=== PATIENT | male | born 1980 | race Caucasian/White ===

== ENCOUNTER 2016-06-15 10:42 | Inpatient (IN) | payer OTHER, MEDICAID ==
--- NOTE | 2016-06-15 10:59 | ED Physician Chart ---
Chief Complaint/HPI - Patient Information Date Seen:: 06/15/16 Time Seen:: 10:59 Chief Complaint:: FEVER and CHILLS THIS AM History of Present Illness:: The patient awoke at 5:30 this morning with chills. 8:30 he was running a fever and subsequent to that he developed pain in his left leg. 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 Patient rates his leg pain is a 5-6/10. It is more painful when he bears weight and less painful with elevation. Patient has been a diabetic for 18 years. He has had slight increase in urine volume over the past 2 days. Allergies:: Allergies Allergy/AdvReac Type Severity Reaction Status Date / Time codeine Allergy Verified 06/15/16 10:55 Historian:: Patient Review:: Nurse's Note Reviewed (nursing notes show fever and chills and body aches as the chief complaint vital signs show temperature of 99.3, pulse of 129 respirations of 16 and blood pressure of 104/70. The O2 sat is 95%.) Review of Systems - Review of Systems General/Constitutional: Fever, Chills, No weight loss, No weakness, No loss of appetite Skin: Skin lesions, No bruising, Other (the patient has a dime-sized ulceration on his left heel. There is increased pigmentation over the left pretibial region.) Head: No headache, No light-headedness Eyes: No loss of vision, No pain, No diplopia ENT: No earache, No sore throat, No tinnitus Neck: No neck pain, No swelling, No stiffness, No mass noted Cardio Vascular: No chest pain, No palpitations, No orthopnea, edema Pulmonary: SOB (shortness of breath is mild.), No cough, No sputum, No wheezing GI: No nausea, No vomiting, No diarrhea, No pain, Constipation G/U: No dysuria, Frequency, No hematuria, No nacturia Syrup Blender: Other (normal external genitalia.) Musculoskeletal: Bone or joint pain, No muscle pain, Other (the pain is localized to the left anterior pretibial region.) Endocrine: No polydipsia Psychiatric: No prior psych history Hematopoietic: No bruising, No lymphadenopathy Allergic/Immuno: No urticaria, No angioedema Neurological: No syncope, No focal symptoms, No weakness, No paresthesia, No headache, No seizure, No dizziness, No confusion, No vertigo Past Medical History - Past Medical History Past Medical History: HTN (the patient has chronic renal disease with approximately 30% of renal function.), DM (diabetes 18 years.) Social History: Non Smoker, No Alcohol, No Drug Use, 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 Family Medical History - Family Member Father History Unknown: Yes Living Status: Still Living Hx Family Diabetes: Yes Physical Exam - Physical Examination General/Constitutional: Well-developed, well-nourished, Alert Other Gen/Cons comments:: Patient is in mild distress from his fever, chills and left leg pain. Head: Atraumatic Eyes: Lids, conjuctiva normal, PERRL, EOMI Other Eyes comments:: Mild horizontal nystagmus with gaze to the left. Other Skin comments:: There is increased pigmentation in the left pretibial region compared to the right side. Furthermore that region is much warmer and tender to palpation than the right side. There is an erythemic component to the increased pigmentation. There is a dime-sized full-thickness ulceration over the left heel which is full-thickness and without any extrusion of purulent material. ENMT: External ears, nose nl, TM canals nl, Nasal exam nl, Lips, teeth, gums nl , Oropharynx nl, Tonsils nl Neck: Nontender, Full ROM w/o pain, No JVD, No nuchal rigidity, No mass, No stridor Respiratory: Nl effort/Exclusion, No Wheeze/Rhonchi/Rales Other Cardio Vascular comments:: The patient has a regular tachycardia in the 1:30 range. GI: No tenderness/rebounding/guarding, No organomegaly, No hernia, Normal BS's, Nondistended, No mass/bruits, No McBurney tenderness Other GI comments:: Rectal exam deferred at my discretion. : No CVA tenderness, NL external genitalia Extremities: Full ROM, normal strength in all extremities Other Extremities comments:: The left anterior tibial region is hot to the touch, with increased pigmentation and mild erythema. No lymphangitis. The other extremities are all normal. There is a dime-sized full-thickness ulceration in the region of the left heel. Neuro/Psych: Alert/oriented, Normal sensory exam, Normal motor strength, Judgement/insight normal, Mood normal, No focal deficits Other Neuro/Psych comments:: She was not ambulated due to increased pain when he weight bears with the left lower extremity. Misc: Normal back, No paraspinal tenderness Labs/Radiology/EKG Results - Radiology Results Results: Single view portable chest x-ray: Patient has borderline cardiomegaly. No CHF. No areas of pulmonary infiltrate or consolidation. No pneumothorax. No mediastinal widening. Impression: Borderline chest x-ray due to borderline cardiomegaly. - EKG Interpretations EKG Time:: 11:59 Rhythm: sinus tachycardia Bradford: normal axis Rate: 1:15 Comments:: Normal [place] interval. QRS duration of 103 is borderline prolonged. normal was normal. No ST segment elevation or depression. Normal T waves. Impression : No acute ischemic findings. Assessment - Assessment General Assessment: CASE SUMMARY: This 36-year-old diabetic male presents with onset of chills and fever earlier this a.m. He also has pain in the left lower extremity below the knee and an ulceration on the left heel. On examination of the leg it is hot to the touch and tender and mildly erythemic. Patient has a past medical history of diabetes, hypertension, and chronic renal impairment. At the present time he is not dialysis dependent. The white count returned in the 17, 000 range, the creatinine was 3.9, BUN was 58. Patient's electrolytes showed mild hyponatremia and hypokalemia. The lactic acid was 1.96. The patient received 2 L of normal saline with an additional 1.6 L ordered. He received Ancef 2 g intravenously. His primary care physician is Dr. Traylor and he has [facility] insurance which he admits to Dr. Whitlock. The patient will be admitted to a med/surgical bed for further diagnostic evaluation and treatment of sepsis. MDM DDX for FEVER AND CHILLS: NOT Pneumonia based on patient's history and exam and negative chest x-ray. NOT urinary tract infection based on the results of the UA. NOT meningitis based on the patient's history and physical examination. ED Septic Shock - . Is Septic Shock (SBP<90, OR Lactate>4 mmol\L) present?: No Reassessment (Disposition) - Reassessment Reassessment Condition:: Improved - Diagnosis Diagnosis:: CELLULITIS OF THE Distal LEFT LOWER EXTREMITY, SEPSIS, Diabetes, Hypertension, Chronic Renal Disease. - Aftercare/Follow up Instructions Aftercare/Follow-Up Instructions:: Counseled pt & family regarding lab results/ diagnosis & need follow up - Patient Disposition Discharge/Transfer:: Acute Care w/in this hosp Accepting Physician:: I spoke with Dr.Herin Traylor his primary care physician who was a nephrologis
[2016-06-15] MEDS ORDERED: Sodium Chloride 0.9% 2,000 ML IV ONE (11:20)
[2016-06-15 11:30] LABS: HEMATOCRIT 34.6 % (39.0-49.0); HEMOGLOBIN 11.8 gm/dL (13.2-17.3); MEAN CELL VOLUME 79.8 fl (80-99); MEAN CORPUSCULAR HEMOGLOBIN 27.3 pg (26.0-30.0); MEAN CORPUSCULAR HGB CONC 34.2 pg (28.0-36.0); MEAN PLATELET VOLUME 7.1 fl; RED BLOOD COUNT 4.33 Mil/cmm (4.30-5.70); RED CELL DISTRIBUTION WIDTH 14.3 % (11.5-20.0)
[2016-06-15] MEDS ORDERED: ceFAZolin 2 GM in Sodium Chloride 0.9% 100 ML IV SCH (11:30)
[2016-06-15 11:32] LABS: PLATELET COUNT 340 Th/cmm (150-400); WHITE BLOOD COUNT 17.5 Th/cmm (4.8-10.8)
[2016-06-15 11:36] LABS: URINE BILIRUBIN NEGATIVE (NEGATIVE); URINE BLOOD MODERATE (NEGATIVE); URINE COLOR YELLOW; URINE GLUCOSE (UA) 100 mg/dL (NEGATIVE); URINE KETONE NEGATIVE (NEGATIVE)
[2016-06-15 11:37] LABS: URINE PROTEIN >300 mg/dL (NEGATIVE); URINE UROBILINOGEN 0.2 E.U./dL (0.2 - 1.0)
[2016-06-15 11:43] LABS: URINE BACTERIA NONE SEEN /hpf (NONE SEEN); URINE EPITHELIAL CELLS FEW /lpf (FEW); URINE WBC 0-2 /hpf (0-5)
[2016-06-15 11:44] LABS: URINE COARSE GRANULAR CAST 0-2 /lpf (NONE SEEN); URINE FINE GRANULAR CAST 0-2 /lpf (NONE SEEN)
[2016-06-15 11:53] LABS: ANION GAP 10.1 (7.0-16.0); BILIRUBIN,TOTAL 0.5 mg/dL (0.3-1.0); BUN/CREATININE RATIO 14.9; CALCIUM SERUM 9.5 mg/dL (8.6-10.3); CREATININE - SERUM 3.9 mg/dL (0.7-1.3); POTASSIUM SERUM 3.1 mEq/L (3.5-5.1)
[2016-06-15 12:33] LABS: BAND NEUTROPHILE 10 % (0-10); NEUTROPHILS 82 % (40-80); TOTAL CELLS COUNTED 100
[2016-06-15 12:34] LABS: MICROCYTOSIS 1+; PLATELET ESTIMATE ADEQUATE (NORMAL); PLATELET MORPHOLOGY NORMAL (NORMAL)
--- NOTE | 2016-06-15 13:33 | Admit Criteria Form ---
Admit Criteria Forms - Admit Criteria Diagnosis: CELLULITIS Clinical Indications for Admission to Inpatient Care (Place 'X' for any and all applicable criteria): Admission is indicated for ANY ONE of the following(1)(2)(3)(4)(5): [ ]I. Limb-threatening infection [ ]II. High-risk comorbid condition as indicated by ANY ONE of the following: [ ]a) Uncontrolled diabetes (eg, HbA1c greater than 10% (0.1)) [ ]b) Cirrhosis [ ]c) Neutropenia [ ]d) Asplenia [ ]e) Immunosuppression [ ]f) Symptomatic heart failure [ ]III. Failure of outpatient therapy as indicated by ALL of the following: [ ]a) Progression or no improvement after adequate trial (minimum of 48 hours, with longer period for stable lower extremity infection) [ ]b) Adequate antibiotic regimen as indicated by use of ANY ONE of the following: [ ]i) First-generation cephalosporin (e.g., cephalexin) [ ]ii) Antistaphylococcal penicillin (e.g., dicloxacillin) [ ]iii) Penicillin-allergic patient regimen (clindamycin, extended-spectrum fluoroquinolone, or doxycycline) [ ]iv) Resistant organism (eg, methicillin-resistant Staphylococcus aureus) regimen (6) [ ]c) Outpatient intravenous therapy regimen is not appropriate due to ANY ONE of the following. (7)(8)(9)(10): [ ]i) It was tried and was not successful (eg, progression of infection). [ ]ii) It is not available or cannot be arranged in a clinically appropriate time frame (e.g., the next day). [ ]iii) Clinical presentation (eg, acuity of infection, rapidity of progression, confirmed or suspected bacteremia) is judged to require ALL of the following: [ ]1) Immediate initiation of intravenous therapy ( eg, cannot wait for next day) [ ]2) Intensity of patient monitoring and observation (eg, vital sign measurement, checks for infection progression) that cannot be provided at other than inpatient level of care [ ]IV. Mental status changes [ ]V. Bacteremia [ ]. Hemodynamic instability [ ]VII. Suspected necrotizing soft tissue infection (e.g., gas in tissue)(11)( 12) [ ]VIII. Orbital infection (13)(14) [ ]IX. Associated surgical procedure (e.g., abscess drainage, debridement) not amenable to outpatient, emergency department, or observation care [ ]X. Cutaneous gangrene [ ]XI. High fever (temperature greater than 39.5 degrees C (103.1 degrees F) (oral)) not responsive to outpatient, emergency department, or observation care therapy [X]XIII. Inpatient admission required rather than observation care (Also use Cellulitis: Observation Care as appropriate) because of ANY ONE of the following : [ ]a) Periorbital or perineal infection that is severe or worsening [ ]b) Severe pain requiring acute inpatient management [ ]c) IV fluid to replace significant ongoing (e.g., for over 24 hours) losses (greater than 3L/m2 per day) [ ]d) Compartment syndrome monitoring (17) [ ]e) Strict or protective (eg, laminar flow) isolation [ ]f) Urgent debridement or skin grafting [ ]g) Bone or joint debridement [ ]h) Immediate inpatient surgery [X]i) Other condition, treatment or monitoring requiring inpatient admission Extended stay beyond goal length of stay may be needed for (1)(18): [ ]a) Necrotizing soft tissue infection or fasciitis [ ]b) Gram-negative infection [ ]c) Methicillin-resistant Staphylococcal aureus (MRSA) infection [ ]d) Peripheral venous insufficiency with cellulitis [ ]e) Extensive edema [ ]f) Sepsis or continued Hemodynamic instability [ ]g) Continued high fever or mental status change [ ]h) Bacteremia [ ]i) Active serious comorbid conditions ( eg, heart failure, renal insufficiency) The original [facility] [employer] content created by [facility] [employer] has been revised. The portions of the content which have been revised are identified through the use of italic text or in bold, and [facility] has neither reviewed nor approved the modified material. All other unmodified content is copyright [facility] Please see references footnoted in the original [facility] edition 2016 Admit Criteria Met?: Yes
[2016-06-15] MEDS ORDERED: Potassium Chloride 20 mEq ER Tab PO ONE ×2 (13:46→14:06)
[2016-06-15] MEDS ORDERED: Piperacillin Sodium/Tazobact 3.375 gm Vial IV ONE (14:06)
--- NOTE | 2016-06-15 15:09 | Diagnostic Imaging Report ---
Portable chest x-ray History: Pain Allowing for portable technique the heart size is normal. No focal pulmonary parenchymal processes. No hilar or mediastinal abnormalities. Impression: No acute abnormalities.
[2016-06-15] MEDS: INSULIN ASPART SLIDING SCALE 100 UNITS/ML UNIT SUBQ SCH ×2 (18:45→22:08)
--- NOTE | 2016-06-15 19:23 | History & Physical ---
CHIEF COMPLAINT: "I started to have fever and chills this morning. I have foot ulcers for the last 2 years and my left leg is swollen. HISTORY OF PRESENT ILLNESS: This is a 36-year-old [place] male with history of type 2 diabetes, hypertension and history of chronic kidney disease, has been followed by the color paste mixing supervisor, presented himself to the Emergency Room for evaluation of acute onset of fever and chills associated with left leg swelling and pain. The patient was worked up in the Emergency Room and subsequently admitted to the hospital for further treatment. The patient is a good historian. PAST MEDICAL HISTORY: Remarkable for: 1. Diabetes. 2. Hypertension. 3. DJD. 4. Chronic kidney disease, stage 3-4. 5. Nephrotic syndrome. MEDICATIONS AT HOME: The patient is taking Levemir insulin along with bolus insulin, lispro, Lasix, clonidine, aspirin and Norvasc. ALLERGIES: The patient is allergic to codeine. 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 The patient has no smoking cigarette, drinking alcohol or using street drug use. FAMILY MEDICAL HISTORY: Remarkable for diabetes. REVIEW OF SYSTEMS: The patient currently denies any headache, blurred vision, double vision, dysphagia, odynophagia, runny nose, stuffy nose. No chest pain, shortness of breath, no history of any fever or chills. No history of any diarrhea, no history of any dysuria, hematuria, hematochezia, melena. No history of any hematochezia. PHYSICAL EXAMINATION: GENERAL: The patient is alert, awake and oriented lying in the bed without any acute distress. VITAL SIGNS: T-max is 99.3, pulse is 129, blood pressure is 104/70 and respiratory rate is 16. HEENT: Head: Normocephalic and atraumatic. Eyes: Extraocular muscles are intact. Mouth: Tongue was pink and coated. NECK: Supple. No JVD and no hepatojugular reflex. No lymphadenopathy, thyromegaly or carotid bruit. HEART: Both heart sounds are regular. No S3 and no S4. CHEST: Lung equal in expansion. No wheezing and no crackles. ABDOMEN: Protuberant and soft. No guarding and no rigidity. Liver and spleen palpable. No palpable mass. EXTREMITIES: Remarkable for chronic venostasis changes on both legs noted more on the left than right with significant amount of erythema involving starting from the ankle going all the way up to the knee area noted. There is no calf tenderness. There is a base on the left heel. There are ulcers approximately 3 x 2 cm oval shaped noted with edges of the ulcers has macerated skin. The base of the ulcer is white with pink in color noted. Both peripheral pulses were +2, palpable. No calf tenderness noted. NEUROLOGIC: Alert, awake and oriented to time, place and person. A 2-12 cranial nerves are intact. Power in upper and lower extremities, 5+. Sensation to touch are intact. Babinskis in both toes are going down. No cerebral sign. AVAILABLE DIAGNOSTIC DATA: Performed in the Emergency Room, white count of 17.5, hemoglobin 11.8, hematocrit of 34.6 and platelet count of 340. BUN and creatinine is ____ and 3.9, sodium 133, potassium of 3.1, glucose of 179 and calcium of 9.5. Lactic acid is normal. I do not have lactic acid is normal. The chest x-ray, no infiltrate and no congestion. Blood cultures have been done, which is not available. MRSA screening has been done as well. CLINICAL IMPRESSIONS: 1. Rapidly progressive cellulitis, most likely from group A. 2. Left heel nonhealing ulcers. 3. Sepsis. 4. Diabetes mellitus, insulin requiring. 5. Chronic kidney disease. 6. Hypertension. 7. Diabetic neuropathy. PLAN: 1. Admit this patient to medical floor. 2. IV fluid. 3. IV antibiotic. 4. Wait for the blood cultures. 5. Infectious Disease consultations. 6. Appropriate home medicine reconciliation. 7. Nephrology consultation. 8. Monitor the blood pressure. 9. Follow labs. 10. Follow customer service and sales consultant recommendations. 11. On the view of ulcers on the left heel, an MRI of the ankle will be done in order to assess osteomyelitis. Further recommendations will be given once other lab datas are available. Care plan has been reviewed and discussed with the patient. JOB# [id number]
[2016-06-15] MEDS ORDERED: Non-Formulary Item 1 EA (Insulin Lispro [Humalog] 2 UNIT) SUBQ SCH (21:00)
[2016-06-15] MEDS: Acetaminophen 500 MG TAB PO PRN (21:15)
[2016-06-15] MEDS: Insulin Detemir 100 units/mL 10mL Vial SUBQ SCH (22:07)
--- NOTE | 2016-06-16 05:59 | Consultation ---
REFERRING PHYSICIAN: Dr. Dallin Jernigan. REASON FOR CONSULTATION: Fever and sepsis. HISTORY OF PRESENT ILLNESS: The patient is a 36-year-old male with a past medical history of CKD, stage V, for last 1 year and not on any hemodialysis, had chronic venous insufficiency of both legs with discoloration of both legs, may have diabetic dermatopathy, followed by outbound sales executive for his left heel ulcer. He developed fever and chills this morning, so he came to the ER for further evaluation and management. On initial evaluation, the patient's temperature was 99.3 degrees Fahrenheit and WBC count was 17,500. The patient also complained of some redness of his left leg extending to the knee from below. The patient was started on Zosyn and ID consultation was called in for the antibiotic management. PAST MEDICAL HISTORY: Includes diabetes mellitus type 2 for more than 18 years, hypertension, CKD, stage V for almost 1 year, venous insufficiency of both legs and discoloration of both legs for almost more than 1 year, left heel ulcer, followed by podiatry healthcare network pricing consultant using diabetic shoes and obstructive sleep apnea on CPAP at night. SOCIAL HISTORY: The patient is . Denies any smoking, alcohol or drug use. 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 FAMILY HISTORY: Father has diabetes mellitus. ALLERGIES: NKDA. MEDICATIONS: As per medication reconciliation sheet. Antibiotic velasquez, the patient is on Zosyn. REVIEW OF SYSTEMS: GENERAL: The patient complains of fever. There are associated chills. Denies any generalized weakness. HEENT: The patient denies diplopia, photophobia or sore throat. RESPIRATORY: The patient denies any cough or shortness of breath or wheezing. CVS: The patient denies any chest pain, no palpitation and no leg swelling. GASTROINTESTINAL: The patient denies any nausea, vomiting, diarrhea, constipation nor abdominal pain. GENITOURINARY: The patient denies any dysuria or hematuria. NEUROLOGIC: The patient denies any headache, dizziness or focal weakness. SKIN: The patient has discoloration of both legs with dry skin and scaly skin. The patient also has redness in the left leg extending from the leg area to the knee. PHYSICAL EXAMINATION: VITAL SIGNS: Current vital signs show temperature is 99.1, pulse 105, respirations 16 and blood pressure 138/71. GENERAL: The patient is comfortable lying in the bed, not in acute distress. HEENT: Head is normocephalic and atraumatic. Oral cavity moist, pink tongue. Eyes: No pallor and no icterus. Pupils PERRLA, EOMI. NECK: Supple. No JVD and no carotid bruit. Trachea in midline. CHEST: Bilateral breath sounds. No crackles or wheezing. CARDIOVASCULAR: S1 and S2 within normal limits. Regular rhythm. No murmur and no gallop. ABDOMEN: Soft, nontender and nondistended. Bowel sounds present. EXTREMITIES: No cyanosis, no clubbing and no edema. The patient has discoloration and darkening of the skin with scaling of both lower extremities in the leg area. There is faint redness in the left leg extending ____ from leg area to the knee and popliteal area posteriorly. There is no swelling or edema. NEUROLOGIC: Alert, awake and oriented x 3. No focal neurologic deficits. LABORATORY DATA: Current lab shows WBC count is 17,500, hemoglobin 11.8, hematocrit 34.6, platelets are 340,000 and neutrophils 82%. Sodium 133, potassium 3.1, chloride 99, bicarb is 27, BUN is 58, creatinine 3.9 and glucose is 179. LFTs reviewed. Urinalysis showed moderate blood, bacteria none and wbc 's 0-2. IMAGING STUDIES: Chest x-ray shows no active disease. IMPRESSION: 1. Sepsis and leukocytosis. 2. Left leg cellulitis, likely Staphylococcus versus Streptococcus. 3. Left heel nonhealing ulcers secondary to callous versus diabetic foot ulcer followed by podiatry healthcare network pricing consultant. 4. Obstructive sleep apnea on CPAP. 5. Diabetes mellitus type 2 for 18 years or so. 6. CKD stage V, may be secondary to diabetic nephropathy. 7. Hypertension. 8. Diabetic neuropathy. 9. Venous insufficiency. 10. May have eczema versus diabetic dermatopathy. RECOMMENDATIONS: We will continue Zosyn, add vancomycin IV, arterial study of both lower extremities. Thank you, Dr. Jernigan for involving me in taking care of this patient. JOB# [id number] MTDD
[2016-06-16] MEDS: Acetaminophen 500 MG TAB PO PRN ×2 (06:05→16:14)
[2016-06-16 07:10] LABS: HEMOGLOBIN 10.8 gm/dL (13.2-17.3); MEAN CELL VOLUME 80.9 fl (80-99); MEAN CORPUSCULAR HEMOGLOBIN 28.4 pg (26.0-30.0); MEAN CORPUSCULAR HGB CONC 35.1 pg (28.0-36.0); MEAN PLATELET VOLUME 7.2 fl; PLATELET COUNT 282 Th/cmm (150-400); RED BLOOD COUNT 3.81 Mil/cmm (4.30-5.70); RED CELL DISTRIBUTION WIDTH 14.6 % (11.5-20.0)
[2016-06-16 07:24] LABS: HEMATOCRIT 30.8 % (39.0-49.0); WHITE BLOOD COUNT 19.9 Th/cmm (4.8-10.8)
[2016-06-16 07:45] LABS: ANION GAP 4.6 (7.0-16.0); BILIRUBIN,TOTAL 0.6 mg/dL (0.3-1.0); CALCIUM SERUM 8.3 mg/dL (8.6-10.3); CARBON DIOXIDE 26.7 mEq/L (21.0-31.0); CREATININE - SERUM 3.5 mg/dL (0.7-1.3); MAGNESIUM 1.9 mg/dL (1.9-2.7); PHOSPHOROUS 2.3 mg/dL (2.5-5.0); POTASSIUM SERUM 3.3 mEq/L (3.5-5.1)
[2016-06-16 07:46] LABS: VANCOMYCIN RANDOM 5.9 ug/mL (5.0-40.0)
[2016-06-16] MEDS: INSULIN ASPART SLIDING SCALE 100 UNITS/ML UNIT SUBQ SCH ×4 (07:51→21:47)
[2016-06-16] MEDS: Aspirin 81mg Chewable Tab PO SCH (08:35)
[2016-06-16] MEDS ORDERED: Potassium Chloride 20 mEq ER Tab PO ONE (08:54)
[2016-06-16 09:36] LABS: BAND NEUTROPHILE 12 % (0-10); NEUTROPHILS 82 % (40-80); TOTAL CELLS COUNTED 100
[2016-06-16 09:37] LABS: PLATELET ESTIMATE ADEQUATE (NORMAL); PLATELET MORPHOLOGY NORMAL (NORMAL)
--- NOTE | 2016-06-16 09:48 | Consultation ---
RENAL CONSULTATION LOCATION: [facility], room #31, bed #2. PRIMARY CARE PHYSICIAN: Dr. Jernigan. I thank you very much Dr. Jernigan for this consult. IDENTIFICATION: This is a 36-year-old male patient, known to me for last many years. The patient is a known case of insulin-dependent diabetes mellitus, hypertension, CKD, IV, anemia, severe nephrotic syndrome, and diabetic retinopathy. The patient is supposed to see Dr. Errol Puentes for AV fistula ____ last about 2-3 months. The patient was doing fairly well, recently seen by Podiatry, who did a debridement on his left heel. Now the patient came to the Emergency Room with complaint of fever, chills, pain, redness on the left lower extremity, was found to have severe cellulitis and open wound on the left heel area. The patient has been admitted. Renal consultation has been requested. The patient denies nausea, vomiting, diarrhea. Denies chest pain, shortness of breath. The patient states that he is taking all his medications regularly. His blood sugar is improving gradually. MEDICATIONS: The patient's medications include amlodipine 10 mg a day, aspirin 81 a day, clonidine 0.3 t.i.d., Lasix 80 once a day, insulin Levemir 65 units at night. The patient has been started on IV Zosyn over here. PAST MEDICAL AND SURGICAL HISTORY: As stated above. Insulin-dependent diabetes mellitus, diabetic retinopathy, hypertension, anemia, CKD IV, severe nephrotic syndrome, hyperlipidemia, obesity. SOCIAL HISTORY: No history of alcoholism or smoking. PHYSICAL EXAMINATION: GENERAL: A 36-year-old male patient, conscious, alert VITAL SIGNS: Heart rate 125, temperature 99.1, blood pressure 138/71, respirations 16. HEENT: Head is normocephalic and atraumatic. Eyes, sclerae is nonicteric. Conjunctivae are pale. Pupils are reactive. NECK: Jugular venous pressure not distended. No carotid bruit. No neck stiffness. LUNGS: Good air entry without rales or rhonchi. CARDIOVASCULAR: Regular, no rub or gallop. ABDOMEN: Soft, bowel sounds present. No organomegaly or bruit. EXTREMITIES: Red, lower extremity cellulitis, left heel open wound with infection. LABORATORY DATA: WBC 17.5, hemoglobin 11.8, platelets 340,000. Sodium 133, potassium 3.1, chloride 99, CO2 of 27, BUN 58, creatinine 3.9, blood sugar 179. LFTs normal. Urinalysis, protein 300+, nitrite negative. ASSESSMENT: 1. Chronic kidney disease IV with creatinine clearance about 18 mL per minute, most probably secondary to diabetic nephropathy. 2. Nephrotic syndrome secondary to diabetes mellitus. 3. Insulin-dependent diabetes mellitus. 4. Left heel cellulitis. 5. Anemia secondary to chronic kidney disease. 6. Diabetic retinopathy. 7. Hypertension. 8. Hyperlipidemia. PLAN: We will obtain phosphorus, PTH, CMP, iron and iron saturation, and CBC in the morning. Continue current treatment. The patient has a previous episode of hyperkalemia, and so the patient is not on LALITA inhibitor or an ARB. We may try the ARB while the patient is in the hospital and check BMP again. This has been discussed with the patient and he is skeptical about it since he had hyperkalemia before. I will follow this patient with you very closely. I thank you very much Dr. Jernigan for this consult. JOB# [id number]
--- NOTE | 2016-06-16 12:10 | Diagnostic Imaging Report ---
Bilateral lower extremity arterial Doppler study HISTORY: Peripheral arterial disease COMPARISON: None Technique: Longitudinal and transverse sonographic images of the bilateral lower extremity arteries were obtained with doppler analysis. FINDINGS: Exam of the right side demonstrates intimal thickening and mild to moderate atherosclerotic vascular disease. There is triphasic flow extending from the right common femoral to the right posterior tibialis artery. There is biphasic flow within the right dorsalis pedis artery. Right ankle-brachial index is 1.1. Exam of the left side demonstrates mild to moderate atherosclerotic vascular disease. There is triphasic flow with the left common femoral, left superficial femoral, and left popliteal artery. Biphasic flow is seen in the left tibialis anterior and dorsalis pedis artery. Triphasic flow of the left tibialis posterior artery is noted. Left ankle-brachial index is 1.0 IMPRESSION: Mild to moderate atherosclerotic vascular disease. No evidence of hemodynamic significant stenosis.
[2016-06-16] MEDS: Insulin Detemir 100 units/mL 10mL Vial SUBQ SCH (21:42)
[2016-06-17 06:31] LABS: HEMATOCRIT 28.9 % (39.0-49.0); HEMOGLOBIN 9.8 gm/dL (13.2-17.3); MEAN CELL VOLUME 81.5 fl (80-99); MEAN CORPUSCULAR HEMOGLOBIN 27.7 pg (26.0-30.0); MEAN PLATELET VOLUME 7.3 fl; PLATELET COUNT 273 Th/cmm (150-400); RED BLOOD COUNT 3.55 Mil/cmm (4.30-5.70); RED CELL DISTRIBUTION WIDTH 14.7 % (11.5-20.0)
[2016-06-17 06:41] LABS: ALB/GLOB RATIO 0.9 (1.0-1.8); ANION GAP 7.5 (7.0-16.0); BILIRUBIN,TOTAL 0.4 mg/dL (0.3-1.0); BUN/CREATININE RATIO 13.2; CALCIUM SERUM 8.9 mg/dL (8.6-10.3); CARBON DIOXIDE 27.8 mEq/L (21.0-31.0); CREATININE - SERUM 3.1 mg/dL (0.7-1.3); POTASSIUM SERUM 3.3 mEq/L (3.5-5.1)
[2016-06-17] MEDS: INSULIN ASPART SLIDING SCALE 100 UNITS/ML UNIT SUBQ SCH ×4 (06:41→20:15)
[2016-06-17 06:47] LABS: VANCOMYCIN RANDOM 13.7 ug/mL (5.0-40.0)
[2016-06-17 06:50] LABS: WHITE BLOOD COUNT 17.7 Th/cmm (4.8-10.8)
[2016-06-17 08:08] LABS: IRON SATURATION 4 % (15-55); TIBC (LCI) 202 ug/dL (250-450); UIBC 194 ug/dL (111-343)
[2016-06-17 08:17] LABS: BAND NEUTROPHILE 5 % (0-10); NEUTROPHILS 86 % (40-80); TOTAL CELLS COUNTED 100
[2016-06-17 08:18] LABS: PLATELET ESTIMATE ADEQUATE (NORMAL); PLATELET MORPHOLOGY NORMAL (NORMAL)
[2016-06-17] MEDS: Aspirin 81mg Chewable Tab PO SCH (08:39)
[2016-06-17] MEDS ORDERED: Potassium Phosphate 20 MMOLE in Sodium Chloride 0.9% 250 ML IV ONE (13:19)
--- NOTE | 2016-06-17 13:29 | Cardiology ---
Patient of Dr. Jernigan. M-MODE ECHOCARDIOGRAM: Mitral valve, anterior leaflet of mitral valve shows normal excursion, EF velocity. Posterior leaflets of mitral valve shows normal excursion. Left ventricular posterior wall shows increased thickness, normal excursion. Interventricular septum shows increased thickness, normal excursion, hypertrophy of the left ventricle, ejection fraction 55%. Left atrium normal. Aortic root shows normal dimension, normal excursion of aortic leaflets. CONCLUSION: Hypertrophy of the left ventricle, ejection fraction 55%. 2D ECHO: Long axis view showed normal sized left ventricle with hypertrophy of the left ventricle. Left atrium normal. Aortic root shows normal dimension, normal excursion of aortic leaflets. Short axis view of mitral valve normal. Short axis view of aortic valve normal. Apical four chamber view showed normal sized left ventricle with hypertrophy of the left ventricle. Left atrium normal. Right ventricular cavity, right atrium normal, no pericardial effusion. CONCLUSION: Hypertrophy of the left ventricle, ejection fraction 55%. Doppler study shows prominent area consistent with full compliance of left ventricle. [facility]# [id number]
[2016-06-17] MEDS: Ferrous Sulfate 325 MG TAB PO SCH (16:38)
[2016-06-17] MEDS: Insulin Detemir 100 units/mL 10mL Vial SUBQ SCH (20:16)
--- NOTE | 2016-06-17 23:14 | Infectious Disease Prog Note ---
Infectious Disease Subjective - Review of Systems Service Date: 06/17/16 Subjective: There is no new change, Fever has resolved. Infectious Disease Objective - Results Result Diagrams: 06/17/16 05:56 06/17/16 05:56 Recent Labs: Laboratory Last Values WBC 17.7 Th/cmm (4.8-10.8) H 06/17/16 05:56 RBC 3.55 Mil/cmm (4.30-5.70) L 06/17/16 05:56 Hgb 9.8 gm/dL (13.2-17.3) L 06/17/16 05:56 Hct 28.9 % (39.0-49.0) L 06/17/16 05:56 MCV 81.5 fl (80-99) 06/17/16 05:56 MCH 27.7 pg (26.0-30.0) 06/17/16 05:56 MCHC Differential 34.0 pg (28.0-36.0) 06/17/16 05:56 RDW 14.7 % (11.5-20.0) 06/17/16 05:56 Plt Count 273 Th/cmm (150-400) 06/17/16 05:56 MPV 7.3 fl 06/17/16 05:56 Band Neutrophils % 5 % (0-10) 06/17/16 05:56 Neutrophils (Manual) 86 % (40-80) H 06/17/16 05:56 Lymphocytes 7 % (20-50) L 06/17/16 05:56 Monocytes 2 % (2-10) 06/17/16 05:56 Platelet Estimate ADEQUATE (NORMAL) 06/17/16 05:56 Platelet Morphology NORMAL (NORMAL) 06/17/16 05:56 Microcytosis 1+ 06/15/16 11:20 RBC Morph Micro Appear NORMAL (NORMAL) 06/17/16 05:56 Sodium 138 mEq/L (136-145) 06/17/16 05:56 Potassium 3.3 mEq/L (3.5-5.1) L 06/17/16 05:56 Chloride 106 mEq/L (98-107) 06/17/16 05:56 Carbon Dioxide 27.8 mEq/L (21.0-31.0) 06/17/16 05:56 Anion Gap 7.5 (7.0-16.0) 06/17/16 05:56 BUN 41 mg/dL (7-25) H 06/17/16 05:56 Creatinine 3.1 mg/dL (0.7-1.3) H 06/17/16 05:56 Est GFR ( Amer) 29.1 ml/min (>90) 06/17/16 05:56 Est GFR (Non-Af Amer) 24.1 ml/min 06/17/16 05:56 BUN/Creatinine Ratio 13.2 06/17/16 05:56 Glucose 112 mg/dL (70-105) H 06/17/16 05:56 POC Glucose 300 MG/DL (70 - 105) H 06/17/16 20:09 Hemoglobin A1c % 9.3 % (4.0-6.0) H 06/16/16 06:50 Whole Bld Lactic Acid 1.96 mmol/L (0.60-1.99) 06/15/16 11:20 Calcium 8.9 mg/dL (8.6-10.3) 06/17/16 05:56 Phosphorus 2.3 mg/dL (2.5-5.0) L 06/16/16 06:50 Magnesium 1.9 mg/dL (1.9-2.7) 06/16/16 06:50 Iron 8 ug/dL (38-169) L 06/16/16 06:50 TIBC 202 ug/dL (250-450) L 06/16/16 06:50 Iron Saturation 4 % (15-55) L 06/16/16 06:50 Unsaturated IBC 194 ug/dL (111-343) 06/16/16 06:50 Total Bilirubin 0.4 mg/dL (0.3-1.0) 06/17/16 05:56 AST 18 U/L (13-39) 06/17/16 05:56 ALT 9 U/L (7-52) 06/17/16 05:56 Alkaline Phosphatase 36 U/L (34-104) 06/17/16 05:56 Total Protein 6.3 gm/dL (6.0-8.3) 06/17/16 05:56 Albumin 3.0 gm/dL (4.2-5.5) L 06/17/16 05:56 Globulin 3.3 gm/dL 06/17/16 05:56 Albumin/Globulin Ratio 0.9 (1.0-1.8) L 06/17/16 05:56 TSH 0.46 uIU/ml (0.34-5.60) 06/16/16 06:50 Urine Source RANDOM 06/15/16 10:50 Urine Color YELLOW 06/15/16 10:50 Urine Clarity CLEAR (CLEAR) 06/15/16 10:50 Urine pH 5.0 06/15/16 10:50 Ur Specific [place] 1.020 (1.005-1.030) 06/15/16 10:50 Urine Protein >300 mg/dL (NEGATIVE) H 06/15/16 10:50 Urine Glucose (UA) 100 mg/dL (NEGATIVE) H 06/15/16 10:50 Urine Ketones NEGATIVE mg/dL (NEGATIVE) 06/15/16 10:50 Urine Blood MODERATE (NEGATIVE) H 06/15/16 10:50 Urine Nitrate NEGATIVE (NEGATIVE) 06/15/16 10:50 Urine Bilirubin NEGATIVE (NEGATIVE) 06/15/16 10:50 Urine Urobilinogen 0.2 E.U./dL (0.2 - 1.0) 06/15/16 10:50 Ur Leukocyte Esterase NEGATIVE (NEGATIVE) 06/15/16 10:50 Urine RBC 1-3 /hpf (0-5) 06/15/16 10:50 Urine WBC 0-2 /hpf (0-5) 06/15/16 10:50 Ur Epithelial Cells FEW /lpf (FEW) 06/15/16 10:50 Urine Bacteria NONE SEEN /hpf (NONE SEEN) 06/15/16 10:50 Fine Granular Casts 0-2 /lpf (NONE SEEN) H 06/15/16 10:50 Coarse Granular Casts 0-2 /lpf (NONE SEEN) H 06/15/16 10:50 Random Vancomycin 13.7 ug/mL (5.0-40.0) 06/17/16 05:56 Influenza A (Rapid) NEG FOR INF A 06/16/16 06:15 Influenza B (Rapid) NEG FOR INF B 06/16/16 06:15 - Physical Exam Vitals and I&O: Vital Signs Temp 98.2 F 06/17/16 20:00 Pulse 66 06/17/16 20:15 Resp 19 06/17/16 20:00 BP 143/79 03/23/17 20:00 Pulse Ox 96 06/17/16 20:00 Intake & Output 06/17/16 06/17/16 06/18/16 06:59 18:59 06:59 Intake Total 100 850 350 Balance 100 850 350 Intake: Intake, IV Amount 100 50 50 Piperacillin Sodium/ 100 50 50 Tazobact 2.25 gm In Sodium Chloride 0.9% 50 ml @ 100 mls/hr IV Q8HR [facility] Rx#:[id number] Oral 800 300 Other: # Voids 2 1 # Bowel Movements 0 0 Active Medications: Current Medications Acetaminophen (Tylenol Extra Strength) 500 mg PO Q6H PRN PRN Reason: fever and pain Stop: 08/14/16 21:03 Last Admin: 06/16/16 16:14 Dose: 500 mg Amlodipine Besylate (Norvasc) 10 mg PO DAILY [facility] Stop: 08/15/16 08:59 Last Admin: 06/17/16 08:39 Dose: 10 mg Aspirin (Aspirin Chewable) 81 mg PO DAILY [facility] Stop: 08/15/16 08:59 Last Admin: 06/17/16 08:39 Dose: 81 mg Clonidine HCl (Catapres) 0.3 mg PO TID [facility] Stop: 08/14/16 20:59 Last Admin: 06/17/16 20:15 Dose: 0.3 mg Epoetin Juan Carlos (Epogen) 10,000 units SUBQ MoWeFr [facility] Stop: 08/17/16 13:19 Ferrous Sulfate (Iron) 325 mg PO BID [facility] Stop: 08/16/16 16:59 Last Admin: 06/17/16 16:38 Dose: 325 mg Folic Acid (Folate) 1 mg PO DAILY [facility] Stop: 08/17/16 08:59 Furosemide (Lasix) 80 mg PO DAILY [facility] Stop: 08/15/16 08:59 Last Admin: 06/17/16 08:39 Dose: 80 mg Piperacillin Sod/Tazobactam (Sod 2.25 gm/ Sodium Chloride) 50 mls @ 100 mls/hr IV Q8HR [facility] Stop: 08/14/16 20:59 Last Infusion: 06/17/16 21:04 Dose: Infused Vancomycin HCl 2 gm/ Sodium (Chloride) 500 mls @ 250 mls/hr IV Q24H [facility] Stop: 08/15/16 08:59 Last Admin: 06/17/16 10:21 Dose: 250 mls/hr Insulin Aspart (Novolog Insulin Sliding Scale) 0 units SUBQ ACHS LEAH PRN Reason: Protocol Stop: 08/14/16 16:29 Last Admin: 06/17/16 20:15 Dose: 6 units Insulin Detemir (Levemir Insulin) 65 units SUBQ HS LEAH PRN Reason: Protocol Stop: 08/14/16 20:59 Last Admin: 06/17/16 20:16 Dose: 65 units Miscellaneous (Vancomycin Iv Per Pharmacy) 1 ea MC PRN PRN PRN Reason: PROTOCOL Stop: 08/14/16 15:30 General: no acute distress, well developed, well nourished HEENT: atraumatic, normocephalic, PERRLA, EOMI Neck: supple, no thyromegaly Cardiovascular: S1S2, regular Lungs: clear to auscultation bilaterally, clear to percussion, no crackles, no wheeze, no rhonchi, no other Abdomen: soft, no tender, no distended Extremities: other (swelling and redness of the left leg is improving.), no cyanosis, no clubbing Infectious Disease Assmt/Plan - Assessment Assessment: 1. Sepsis improving. 2. Left leg cellulitis. 3. DM2 4. CASTRO 5. HTN 6. CKD 5. - Plan Plan: Continue vanco IV and Zosyn. 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 Pt is a good historian. Provided edu on DM, all questions answered to pt's satisfaction. Pt is aware of CKD and avoids high potassium foods. Pt was 295lb in January 2016, voluntary weight loss by counting calories to CBW 265lb . CBW via bedscale 282.7lb, questionable. Explained current diet to pt, pt understands and stated breakfast was great. Pt has good appetite, no difficulties chewing/swallowing. Current Diet Order/ Nutrition Support [id number], low sodium 2gm Pertinent Medications Lasix, Novolog, Levemir, Vancomycin Pertinent Labs 06/16: potassium 3.3L, BUN 49H, creaitnine 3.5H, glucose 221H , A1c 9.3H, phosphorus 2.3L Nutritional Hx/Data Height 1.88 m Height (Calculated Centimeters) 188.0 Current Weight (lbs) 128.231 kg Weight (Calculated Kilograms) 128.2 Weight (Calculated Grams) 094633.6 [place] Body Weight 190lb Recent Weight Change Yes Weight Status Obese GI Symptoms Food Allergies Yes Cultural/Ethnic/Christianity Belief Pt stated he is lactose intolerant, prefers soy milk, however may have milk once in awhile, no problems with cheese, ice cream, and other dairy products. Pt eats light breakfast, usually coffee and egg. Skin Integrity/Comment: Patricio 22. Diabetic foot ulcer /cellulitis/discoloration Estimated Nutritional Goals BEE in Kcals: Adj wt of IBW Calories/Kcals/Kg AdjBW 209lb/95kg (using 265lb as CBW) Kcals Calculated 2850kcal (30kcal/kg) Protein: Adj wt of IBW Protein Calculated 57-76g (0.6-0.8g/kg) Fluid: ml 2850ml (1ml/kcal) Nutritional Problem 2. Problem Problem Impaired nutrient utilization related to Etiology CKD stage 3-5 aeb Signs/Symptoms: potassium 3.3L, BUN 49H, creaitnine 3.5H, phosphorus 2. 3L 1. Problem Problem Altered nutrition related laboratory values related to Etiology DM type 2 aeb Signs/Symptoms: glucose 221H, A1c 9.3H, diabetic foot ulcer/cellulitis Intervention/Recommendation Comments 1. Provided edu on DM diet, all questions answered to pt's satisfaction. Re-cap during follow as needed. 2. Continue with [id number] and low sodium 2gm diet. 3. FNS to provide snacks/ sandwiches of additional [id number] per day to better meet nutritional needs. Expected Outcomes/Goals Expected Outcomes/Goals 1. PO intake to meet at least 75% of estimated nutritional needs.
[2016-06-18 06:39] LABS: % BASOPHILS 0.4 % (0.0-2.0)
[2016-06-18 06:51] LABS: ANION GAP 9.6 (7.0-16.0); BUN/CREATININE RATIO 13.5; CALCIUM SERUM 9.3 mg/dL (8.6-10.3); CARBON DIOXIDE 28.1 mEq/L (21.0-31.0); CREATININE - SERUM 3.1 mg/dL (0.7-1.3); POTASSIUM SERUM 3.7 mEq/L (3.5-5.1)
[2016-06-18 07:00] LABS: % EOSINOPHILS 2.2 % (0.0-5.0); % LYMPHOCYTES 15.3 % (20.0-50.0); % MONOCYTES 3.7 % (2.0-10.0); % NEUTROPHILS 78.4 % (40.0-80.0); HEMOGLOBIN 10.5 gm/dL (13.2-17.3); MEAN CELL VOLUME 81.1 fl (80-99); MEAN CORPUSCULAR HEMOGLOBIN 27.4 pg (26.0-30.0); MEAN CORPUSCULAR HGB CONC 33.8 pg (28.0-36.0); MEAN PLATELET VOLUME 7.7 fl; PLATELET COUNT 313 Th/cmm (150-400); RED BLOOD COUNT 3.82 Mil/cmm (4.30-5.70); RED CELL DISTRIBUTION WIDTH 14.4 % (11.5-20.0)
[2016-06-18 07:27] LABS: WHITE BLOOD COUNT 12.9 Th/cmm (4.8-10.8)
[2016-06-18] MEDS: Ferrous Sulfate 325 MG TAB PO SCH (09:54)
[2016-06-18] MEDS: Aspirin 81mg Chewable Tab PO SCH (09:56)
--- NOTE | 2016-06-18 10:03 | Diagnostic Imaging Report ---
MRI left lower extremity without IV contrast History: Nonhealing plantar wound. Rule out osteomyelitis. Technique: Multiplanar T1, T2, and severe weighted images of the left foot were obtained without IV contrast. Findings: Mild degenerative changes are noted. No cortical fracture is identified. No evidence of osteomyelitis. There is edema seen in the subcutaneous tissues greatest including surrounding the visualized ankle. The regional flexor and extensor tendons are intact. Small ankle effusion is noted. There is tenosynovitis involving the tibialis posterior tendon. There is also mild edema seen along the plantar muscles. IMPRESSION: No evidence of osteomyelitis Areas of subcutaneous edema greatest surrounding the ankle. Findings are suggestive of cellulitis. Please correlate clinically. Additional areas of muscular edema are also seen along the plantar muscles of the foot which may related to myositis. Again clinical correlation is recommended. Mild degenerative changes Small ankle effusion Tibialis posterior tenosynovitis.
--- NOTE | 2016-06-18 11:18 | Infectious Disease Prog Note ---
Infectious Disease Subjective - Review of Systems Service Date: 06/18/16 Subjective: There is no new change, Fever has resolved. Infectious Disease Objective - Results Result Diagrams: 06/18/16 06:15 06/18/16 06:15 Recent Labs: Laboratory Last Values WBC 12.9 Th/cmm (4.8-10.8) H D 06/18/16 06:15 RBC 3.82 Mil/cmm (4.30-5.70) L 06/18/16 06:15 Hgb 10.5 gm/dL (13.2-17.3) L 06/18/16 06:15 Hct 31.0 % (39.0-49.0) L 06/18/16 06:15 MCV 81.1 fl (80-99) 06/18/16 06:15 MCH 27.4 pg (26.0-30.0) 06/18/16 06:15 MCHC Differential 33.8 pg (28.0-36.0) 06/18/16 06:15 RDW 14.4 % (11.5-20.0) 06/18/16 06:15 Plt Count 313 Th/cmm (150-400) 06/18/16 06:15 MPV 7.7 fl 06/18/16 06:15 Neutrophils % 78.4 % (40.0-80.0) 06/18/16 06:15 Band Neutrophils % 5 % (0-10) 06/17/16 05:56 Lymphocytes % 15.3 % (20.0-50.0) L 06/18/16 06:15 Monocytes % 3.7 % (2.0-10.0) 06/18/16 06:15 Eosinophils % 2.2 % (0.0-5.0) 06/18/16 06:15 Basophils % 0.4 % (0.0-2.0) 06/18/16 06:15 Neutrophils (Manual) 86 % (40-80) H 06/17/16 05:56 Lymphocytes 7 % (20-50) L 06/17/16 05:56 Monocytes 2 % (2-10) 06/17/16 05:56 Platelet Estimate ADEQUATE (NORMAL) 06/17/16 05:56 Platelet Morphology NORMAL (NORMAL) 06/17/16 05:56 Microcytosis 1+ 06/15/16 11:20 RBC Morph Micro Appear NORMAL (NORMAL) 06/17/16 05:56 Sodium 139 mEq/L (136-145) 06/18/16 06:15 Potassium 3.7 mEq/L (3.5-5.1) 06/18/16 06:15 Chloride 105 mEq/L (98-107) 06/18/16 06:15 Carbon Dioxide 28.1 mEq/L (21.0-31.0) 06/18/16 06:15 Anion Gap 9.6 (7.0-16.0) 06/18/16 06:15 BUN 42 mg/dL (7-25) H 06/18/16 06:15 Creatinine 3.1 mg/dL (0.7-1.3) H 06/18/16 06:15 Est GFR ( Amer) 29.1 ml/min (>90) 06/18/16 06:15 Est GFR (Non-Af Amer) 24.1 ml/min 06/18/16 06:15 BUN/Creatinine Ratio 13.5 06/18/16 06:15 Glucose 126 mg/dL (70-105) H 06/18/16 06:15 POC Glucose 148 MG/DL (70 - 105) H 06/18/16 05:41 Hemoglobin A1c % 9.3 % (4.0-6.0) H 06/16/16 06:50 Whole Bld Lactic Acid 1.96 mmol/L (0.60-1.99) 06/15/16 11:20 Calcium 9.3 mg/dL (8.6-10.3) 06/18/16 06:15 Phosphorus 2.3 mg/dL (2.5-5.0) L 06/16/16 06:50 Magnesium 1.9 mg/dL (1.9-2.7) 06/16/16 06:50 Iron 8 ug/dL (38-169) L 06/16/16 06:50 TIBC 202 ug/dL (250-450) L 06/16/16 06:50 Iron Saturation 4 % (15-55) L 06/16/16 06:50 Unsaturated IBC 194 ug/dL (111-343) 06/16/16 06:50 Total Bilirubin 0.4 mg/dL (0.3-1.0) 06/17/16 05:56 AST 18 U/L (13-39) 06/17/16 05:56 ALT 9 U/L (7-52) 06/17/16 05:56 Alkaline Phosphatase 36 U/L (34-104) 06/17/16 05:56 Total Protein 6.3 gm/dL (6.0-8.3) 06/17/16 05:56 Albumin 3.0 gm/dL (4.2-5.5) L 06/17/16 05:56 Globulin 3.3 gm/dL 06/17/16 05:56 Albumin/Globulin Ratio 0.9 (1.0-1.8) L 06/17/16 05:56 TSH 0.46 uIU/ml (0.34-5.60) 06/16/16 06:50 Urine Source RANDOM 06/15/16 10:50 Urine Color YELLOW 06/15/16 10:50 Urine Clarity CLEAR (CLEAR) 06/15/16 10:50 Urine pH 5.0 06/15/16 10:50 Ur Specific [place] 1.020 (1.005-1.030) 06/15/16 10:50 Urine Protein >300 mg/dL (NEGATIVE) H 06/15/16 10:50 Urine Glucose (UA) 100 mg/dL (NEGATIVE) H 06/15/16 10:50 Urine Ketones NEGATIVE mg/dL (NEGATIVE) 06/15/16 10:50 Urine Blood MODERATE (NEGATIVE) H 06/15/16 10:50 Urine Nitrate NEGATIVE (NEGATIVE) 06/15/16 10:50 Urine Bilirubin NEGATIVE (NEGATIVE) 06/15/16 10:50 Urine Urobilinogen 0.2 E.U./dL (0.2 - 1.0) 06/15/16 10:50 Ur Leukocyte Esterase NEGATIVE (NEGATIVE) 06/15/16 10:50 Urine RBC 1-3 /hpf (0-5) 06/15/16 10:50 Urine WBC 0-2 /hpf (0-5) 06/15/16 10:50 Ur Epithelial Cells FEW /lpf (FEW) 06/15/16 10:50 Urine Bacteria NONE SEEN /hpf (NONE SEEN) 06/15/16 10:50 Fine Granular Casts 0-2 /lpf (NONE SEEN) H 06/15/16 10:50 Coarse Granular Casts 0-2 /lpf (NONE SEEN) H 06/15/16 10:50 Random Vancomycin 20.0 ug/mL (5.0-40.0) 06/18/16 06:15 Influenza A (Rapid) NEG FOR INF A 06/16/16 06:15 Influenza B (Rapid) NEG FOR INF B 06/16/16 06:15 - Physical Exam Vitals and I&O: Vital Signs Temp 98.2 F 06/18/16 08:00 Pulse 66 06/18/16 09:55 Resp 20 06/18/16 08:00 BP 122/75 06/18/16 09:56 Pulse Ox 98 06/18/16 08:00 Intake & Output 06/17/16 06/18/16 06/18/16 18:59 06:59 18:59 Intake Total 850 600 Balance 850 600 Intake: Intake, IV Amount 50 100 Piperacillin Sodium/ 50 100 Tazobact 2.25 gm In Sodium Chloride 0.9% 50 ml @ 100 mls/hr IV Q8HR [facility] Rx#:[id number] Oral 800 500 Other: # Voids 2 2 # Bowel Movements 0 0 Active Medications: Current Medications Acetaminophen (Tylenol Extra Strength) 500 mg PO Q6H PRN PRN Reason: fever and pain Stop: 08/14/16 21:03 Last Admin: 06/16/16 16:14 Dose: 500 mg Amlodipine Besylate (Norvasc) 10 mg PO DAILY [facility] Stop: 08/15/16 08:59 Last Admin: 06/17/16 08:39 Dose: 10 mg Aspirin (Aspirin Chewable) 81 mg PO DAILY [facility] Stop: 08/15/16 08:59 Last Admin: 06/18/16 09:56 Dose: 81 mg Clonidine HCl (Catapres) 0.3 mg PO TID [facility] Stop: 08/14/16 20:59 Last Admin: 06/18/16 09:55 Dose: 0.3 mg Epoetin Juan Carlos (Epogen) 10,000 units SUBQ MoWeFr [facility] Stop: 08/17/16 13:19 Ferrous Sulfate (Iron) 325 mg PO BID [facility] Stop: 08/16/16 16:59 Last Admin: 06/18/16 09:54 Dose: 325 mg Folic Acid (Folate) 1 mg PO DAILY [facility] Stop: 08/17/16 08:59 Last Admin: 03/24/17 09:54 Dose: 1 mg Furosemide (Lasix) 80 mg PO DAILY [facility] Stop: 08/15/16 08:59 Last Admin: 06/18/16 09:56 Dose: 80 mg Piperacillin Sod/Tazobactam (Sod 2.25 gm/ Sodium Chloride) 50 mls @ 100 mls/hr IV Q8HR [facility] Stop: 08/14/16 20:59 Last Infusion: 06/18/16 04:55 Dose: Infused Vancomycin HCl 1 gm/ Sodium (Chloride) 250 mls @ 165 mls/hr IV Q48H [facility] Stop: 08/18/16 10:59 Insulin Aspart (Novolog Insulin Sliding Scale) 0 units SUBQ ACHS LE[facility] PRN Reason: Protocol Stop: 08/14/16 16:29 Last Admin: 06/17/16 20:15 Dose: 6 units Insulin Detemir (Levemir Insulin) 65 units SUBQ HS [facility] PRN Reason: Protocol Stop: 08/14/16 20:59 Last Admin: 06/17/16 20:16 Dose: 65 units Miscellaneous (Vancomycin Iv Per Pharmacy) 1 ea [facility] PRN PRN PRN Reason: PROTOCOL Stop: 08/14/16 15:30 General: no acute distress, well developed, well nourished HEENT: atraumatic, normocephalic, PERRLA, EOMI, moist mucous membrane Neck: supple, no thyromegaly, no lymphadenopathy Cardiovascular: S1S2, regular Lungs: clear to auscultation bilaterally, clear to percussion Abdomen: soft, no tender, no distended Extremities: other (erythema of the left leg is improving.), no cyanosis, no clubbing, no edema Neurological: awake, alert, oriented Skin: intact Infectious Disease Assmt/Plan - Assessment Assessment: 1. Sepsis improving. 2. Left leg cellulitis. 3. DM2 4. CASTRO 5. HTN 6. CKD 5. - Plan Plan: Change antibiotic to zyvox po. Sherif Jernigan and I was informed not to put PICC line as patient may need IV access in future for HD. and i was told to avoid any nephrotoxic drugs. SHERIF CM. 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 Pt is a good historian. Provided edu on DM, all questions answered to pt's satisfaction. Pt is aware of CKD and avoids high potassium foods. Pt was 295lb in January 2016, voluntary weight loss by counting calories to CBW 265lb . CBW via bedscale 282.7lb, questionable. Explained current diet to pt, pt understands and stated breakfast was great. Pt has good appetite, no difficulties chewing/swallowing. Current Diet Order/ Nutrition Support [id number], low sodium 2gm Pertinent Medications Lasix, Novolog, Levemir, Vancomycin Pertinent Labs 06/16: potassium 3.3L, BUN 49H, creaitnine 3.5H, glucose 221H , A1c 9.3H, phosphorus 2.3L Nutritional Hx/Data Height 1.88 m Height (Calculated Centimeters) 188.0 Current Weight (lbs) 128.231 kg Weight (Calculated Kilograms) 128.2 Weight (Calculated Grams) 529180.6 [place] Body Weight 190lb Recent Weight Change Yes Weight Status Obese GI Symptoms Food Allergies Yes Cultural/Ethnic/Confucianism Belief Pt stated he is lactose intolerant, prefers soy milk, however may have milk once in awhile, no problems with cheese, ice cream, and other dairy products. Pt eats light breakfast, usually coffee and egg. Skin Integrity/Comment: Patricio 22. Diabetic foot ulcer /cellulitis/discoloration Estimated Nutritional Goals BEE in Kcals: Adj wt of IBW Calories/Kcals/Kg AdjBW 209lb/95kg (using 265lb as CBW) Kcals Calculated 2850kcal (30kcal/kg) Protein: Adj wt of IBW Protein Calculated 57-76g (0.6-0.8g/kg) Fluid: ml 2850ml (1ml/kcal) Nutritional Problem 2. Problem Problem Impaired nutrient utilization related to Etiology CKD stage 3-5 aeb Signs/Symptoms: potassium 3.3L, BUN 49H, creaitnine 3.5H, phosphorus 2. 3L 1. Problem Problem Altered nutrition related laboratory values related to Etiology DM type 2 aeb Signs/Symptoms: glucose 221H, A1c 9.3H, diabetic foot ulcer/cellulitis Intervention/Recommendation Comments 1. Provided edu on DM diet, all questions answered to pt's satisfaction. Re-cap during follow as needed. 2. Continue with [id number] and low sodium 2gm diet. 3. FNS to provide snacks/ sandwiches of additional [id number] per day to better meet nutritional needs. Expected Outcomes/Goals Expected Outcomes/Goals 1. PO intake to meet at least 75% of estimated nutritional needs.
[2016-06-18] MEDS ORDERED: Epoetin Alfa 20000 Units/mL Vial SUBQ SCH (13:20)
[2016-06-18] MEDS: INSULIN ASPART SLIDING SCALE 100 UNITS/ML UNIT SUBQ SCH (14:47)
--- NOTE | 2016-06-26 21:06 | Discharge Summary ---
PRINCIPAL DIAGNOSES: 1. Left lower extremity cellulitis, most likely secondary to Streptococcus Viridans. 2. Left heel ulcer, chronic. No evidence of osteomyelitis. 3. Leukocytosis. 4. Chronic kidney disease 4. 5. Nephrotic syndrome secondary to diabetic neuropathy. 6. Obstructive sleep apnea. 7. Electrolyte imbalance. 8. Anemia secondary to chronic kidney disease. 9. Obesity. 10. Debility. BRIEF STATEMENT FOR THE REASON FOR ADMISSION: A 36-year-old [place] male with longstanding history of diabetes, hypertension, chronic kidney disease; presented to the emergency room for acute onset of fever, chills, left leg swelling and pain. After being evaluated in the emergency room, the patient was admitted to the hospital. Please refer to my dictated medical H and P for further information. HOSPITAL COURSE: The patient was admitted to med/surg floor. The patient was placed on IV fluid, IV antibiotic. Diabetes was managed. Nephrology/Infectious Disease consultation was requested and appropriate home medicine was reconciliated. The patient was placed on Zosyn and vancomycin. Arterial Dopplers were remarkable for no hemodynamically significant stenosis. The patient was having electrolyte imbalance, which was replaced as well. In the presence of her nonhealing left heel ulcer, MRI of the left foot was ordered, which was negative for any osteomyelitis. The patient responded fairly well to the treatment plan as prescribed by myself and sap consultant. Decision was made that the patient can be discharged on p.o. antibiotic after the patient responded fairly well to the treatment plan after discussion with Infectious Disease. P.o. antibiotic was given in the form of Zyvox 600 mg b.i.d. to be continued as an outpatient and have followup with the internal grinding machine operator in 1 week. If recurrent symptoms, the patient was advised to go to the emergency room. At the time of discharge, all of his meds were reconciliated. JOB# [id number]
== END 2016-06-18 16:10 | DRG 720 ==
LOC: ER 10:42 → MSI 13:00
PROVIDERS: ADMIT Internal Medicine; ATTEND Internal Medicine
DX: A41.9 Sepsis, unspecified organism (principal); N17.0 Acute kidney failure with tubular necrosis; I13.0 Hypertensive heart and chronic kidney disease with heart failure and stage 1 through stage 4 chronic kidney disease, or unspecified chronic kidney disease; N18.5 Chronic kidney disease, stage 5; L03.116 Cellulitis of left lower limb; E11.21 Type 2 diabetes mellitus with diabetic nephropathy; E11.22 Type 2 diabetes mellitus with diabetic chronic kidney disease; E11.40 Type 2 diabetes mellitus with diabetic neuropathy, unspecified; E11.319 Type 2 diabetes mellitus with unspecified diabetic retinopathy without macular edema; E11.621 Type 2 diabetes mellitus with foot ulcer; E87.6 Hypokalemia; E87.1 Hypo-osmolality and hyponatremia; E66.9 Obesity, unspecified; M19.90 Unspecified osteoarthritis, unspecified site; D63.1 Anemia in chronic kidney disease; E78.5 Hyperlipidemia, unspecified; G47.33 Obstructive sleep apnea (adult) (pediatric); I87.2 Venous insufficiency (chronic) (peripheral); L97.429 Non-pressure chronic ulcer of left heel and midfoot with unspecified severity; Z68.34 Body mass index [BMI] 34.0-34.9, adult; Z79.4 Long term (current) use of insulin; Z88.5 Allergy status to narcotic agent
CPT/HCPCS: 36415-UA; 71010-TC; 73718-TC-LT; 73721-TC-LT; 80048-TC; 80053-TC; 80202-TC; 81001-TC; 82948-90; 83036-90; 83540-90; 83550-90; 83605; 83735-TC; 84100-TC; 84443-TC; 85007-TC; 85025-TC; 85027-TC; 87804-TC; 90799; 93925-TC; J0690; J0885; J1815; J2543; J3370; J7030; J7040; X7704; Z7610